=== PATIENT | female | born 1995 | race Caucasian/White ===

== ENCOUNTER 2018-09-21 06:26 | Day surgery (SDC) | payer OTHER ==
[2018-09-21] MEDS ORDERED: BUPIVACAINE 0.25%/EPI (SDV) 10 ML INJ (07:19)
[2018-09-21] MEDS ORDERED: PROPOFOL 40 ML (07:21)
[2018-09-21] MEDS ORDERED: FAMOTIDINE 20 MG INJ (07:22)
[2018-09-21] MEDS ORDERED: FENTAnyl 50 MCG/ML VIAL (07:22)
[2018-09-21] MEDS ORDERED: MIDAZOLAM 1 MG/ML 2 ML INJ (07:22)
[2018-09-21] MEDS ORDERED: CEFAZOLIN 1 GM INJ (07:23)
[2018-09-21] MEDS ORDERED: ONDANSETRON 4 MG INJ (07:23)
[2018-09-21] MEDS ORDERED: DEXAMETHASONE 4 MG/ML 1 ML INJ (07:23)
[2018-09-21] MEDS ORDERED: LIDOCAINE 2% (SDV) 5 ML INJ (07:23)
[2018-09-21] MEDS ORDERED: HYDROmorphONE 1 MG/5 ML IV SYRINGE IV ×2 (07:30)
[2018-09-21] MEDS ORDERED: ONDANSETRON 4 MG INJ IV ×2 (07:30→08:30)
[2018-09-21] MEDS ORDERED: LABETALOL HCL 20MG INJ IV (07:30)
[2018-09-21] MEDS: LIDOCAINE 1%/EPI 30 ML INJ INJ (07:30)
[2018-09-21] MEDS ORDERED: FENTAnyl 50 MCG/ML VIAL IV ×2 (07:30)
[2018-09-21] MEDS ORDERED: OXYCODONE/ACETAMINOPHEN (5/325) TAB PO ×2 (07:30)
[2018-09-21] MEDS ORDERED: DIPHENHYDRAMINE 50 MG INJ IV (07:30)
[2018-09-21] MEDS ORDERED: morphine (1 MG/ML) 10ML SYRINGE IV ×2 (07:30)
[2018-09-21] MEDS: BUPIVACAINE 0.25% (MPF) 10 ML 10 ML VIAL INJ (07:30)
[2018-09-21] MEDS ORDERED: ALBUTEROL 0.083% (NEB) 2.5 MG/3 ML AMP HHN (07:30)
[2018-09-21] MEDS ORDERED: MEPERIDINE 25 MG INJ IV (07:30)
[2018-09-21] MEDS ORDERED: LIDOCAINE 1%/EPI 30 ML INJ (07:37)
[2018-09-21] MEDS ORDERED: BUPIVACAINE 0.25% (MPF) 30 ML INJ (07:37)
[2018-09-21] MEDS ORDERED: CEFAZOLIN 2 GM/50 ML (PMX) 50 ML IVPB (08:30)
[2018-09-21] MEDS ORDERED: SOD CHLORIDE 0.9% 1,000 ML IV (08:30)
[2018-09-21] MEDS ORDERED: IBUPROFEN 600 MG TAB PO (08:30)
[2018-09-21] MEDS ORDERED: PHENYLephrine (100 MCG/ML) 5ML SYG (08:57)
== END 2018-09-21 09:48 | disposition home or self-care (01) ==
LOC: SUR 06:26 → SDS 06:26 → SUR 09:48
DX: R22.0 Localized swelling, mass and lump, head (principal)
CPT/HCPCS: 11442; 88307